=== PATIENT | male | born 1965 | race Two or more races ===

== ENCOUNTER 2018-08-10 15:01 | Emergency (ER) | payer OTHER ==
[~2018-08-10] VITALS: Ht 177.8 cm; Wt 84.8 kg
== END 2018-08-10 20:35 | disposition home or self-care (01) ==
LOC: ER 15:01
DX: K63.89 Other specified diseases of intestine (principal)

== ENCOUNTER 2021-08-17 17:42 | Emergency (ER) | payer OTHER ==
[~2021-08-17] VITALS: Ht 175.3 cm; Wt 83.5 kg
== END 2021-08-17 21:25 | disposition home or self-care (01) ==
LOC: ER 17:42
DX: K57.90 Diverticulosis of intestine, part unspecified, without perforation or abscess without bleeding (principal); R10.32 Left lower quadrant pain; Z88.6 Allergy status to analgesic agent

== ENCOUNTER 2023-01-15 08:54 | Emergency (ER) | payer OTHER ==
[~2023-01-15] VITALS: Ht 175.3 cm; Wt 81.6 kg
== END 2023-01-15 11:52 | disposition home or self-care (01) ==
LOC: ER 08:54
DX: M54.50 Low back pain, unspecified (principal); M79.604 Pain in right leg; Z88.6 Allergy status to analgesic agent